=== PATIENT | female | born 1960 | race Caucasian/White ===

== ENCOUNTER → 2016-12-27 | Outpatient (CLI) | payer OTHER | LOC: KOH-I 16:37 | DX: R05 Cough (principal) | CPT/HCPCS: 71020 ==

== ENCOUNTER 2021-07-10 20:48 | Inpatient (IN) | payer MEDICARE, OTHER, MEDICAID ==
[~2021-07-10] VITALS: Ht 162.6 cm; Wt 40.1 kg
[2021-07-10 23:08] LABS: HEMOGLOBIN 15.2 gm/dl (12.3-15.3); RED BLOOD COUNT 4.7 M/UL (4.00-5.10); WHITE BLOOD COUNT 9.8 K/UL (4.5-11.0)
[2021-07-10 23:32] LABS: BUN/CREATININE RATIO 11 (0-10)
[2021-07-11] MEDS ORDERED: TYLENOL EXTRA500 MG PO (09:44)
[2021-07-11] MEDS ORDERED: BUPRENORPHIN-N1 EACH SL (09:44)
[2021-07-12 06:55] LABS: HEMOGLOBIN 12.4 gm/dl (12.3-15.3); RED BLOOD COUNT 3.91 M/UL (4.00-5.10); WHITE BLOOD COUNT 14.8 K/UL (4.5-11.0)
[2021-07-12 07:27] LABS: BUN/CREATININE RATIO 26 (0-10)
[2021-07-13 06:06] LABS: HEMOGLOBIN 11.9 gm/dl (12.3-15.3); RED BLOOD COUNT 3.77 M/UL (4.00-5.10); WHITE BLOOD COUNT 13.9 K/UL (4.5-11.0)
[2021-07-13 06:30] LABS: BUN/CREATININE RATIO 30 (0-10)
[2021-07-13] MEDS ORDERED: MEDROL DOSEPAK 24 MG PO (14:56)
[2021-07-13] MEDS ORDERED: LEVOFLOXACIN500 MG PO (14:56)
[2021-07-13] MEDS ORDERED: IPRATROPIU0.2 MG/1 M NEB (14:56)
[2021-07-13] MEDS ORDERED: PULMICORT FLE180 MCG INH (14:56)
[2021-07-13] MEDS ORDERED: LASIX20 MG PO (14:56)
[2021-07-13] MEDS ORDERED: IPRAT-ALBUT 0.5-3 ML INH (14:56)
[2021-07-16 18:10] LABS: HISTOPLASMA MYCELIAL ID AB. Negative (Negative)
== END 2021-07-13 17:20 | disposition home or self-care (01) | DRG 189 ==
LOC: ER1 20:48 → CDU 07-11 02:12 → M/S 07-12 00:40
PROVIDERS: Internal Medicine; Internal Medicine Pulmonary Disease; Physician Assistant; ADMIT Internal Medicine
PROC: 0BD48ZX Extraction of Right Upper Lobe Bronchus, Via Natural or Artificial Opening Endoscopic, Diagnostic (ICD-10-PCS; 2021-07-13)
PROC: 0B9C8ZX Drainage of Right Upper Lung Lobe, Via Natural or Artificial Opening Endoscopic, Diagnostic (ICD-10-PCS; principal; 2021-07-13 11:00)
DX: J96.21 Acute and chronic respiratory failure with hypoxia (principal); E43 Unspecified severe protein-calorie malnutrition; J44.1 Chronic obstructive pulmonary disease with (acute) exacerbation; E87.1 Hypo-osmolality and hyponatremia; F11.20 Opioid dependence, uncomplicated; Z68.1 Body mass index [BMI] 19.9 or less, adult; R91.8 Other nonspecific abnormal finding of lung field; J96.22 Acute and chronic respiratory failure with hypercapnia; F17.210 Nicotine dependence, cigarettes, uncomplicated; E88.09 Other disorders of plasma-protein metabolism, not elsewhere classified; Z20.822 Contact with and (suspected) exposure to COVID-19; Z80.1 Family history of malignant neoplasm of trachea, bronchus and lung; Z82.49 Family history of ischemic heart disease and other diseases of the circulatory system; Z85.41 Personal history of malignant neoplasm of cervix uteri; Z79.899 Other long term (current) drug therapy
CPT/HCPCS: ECHO; 36415; 36600; 71045; 80048; 80053; 81001; 82550; 82553; 82803; 83605; 83615; 83874; 83880; 84484; 85025; 85027; 86612; 86698; 87015; 87040; 87070; 87086; 87116; 87205; 87206; 93005; 93306; 94640; 94664; 94760; 96374; 99285; J0456; J0696; J1650; J2001; J2704; J2920; J2930; J7030; Q9967; U0002

== ENCOUNTER 2021-08-13 16:26 | Emergency (ER) | payer MEDICARE, OTHER ==
[~2021-08-13 16:26] MED LIST: BUPRENORPHIN-N1 EACH SL; IPRAT-ALBUT 0.5-3 ML INH; IPRATROPIU0.2 MG/1 M NEB; LASIX20 MG PO; LEVOFLOXACIN500 MG PO; MEDROL DOSEPAK 24 MG PO; PULMICORT FLE180 MCG INH; TYLENOL EXTRA500 MG PO
[2021-08-13 17:50] LABS: HEMOGLOBIN 13.2 gm/dl (12.3-15.3); RED BLOOD COUNT 4.2 M/UL (4.00-5.10); WHITE BLOOD COUNT 6.6 K/UL (4.5-11.0)
[2021-08-13 18:14] LABS: BUN/CREATININE RATIO 15 (0-10)
[2021-08-14] MEDS ORDERED: PULMICORT FLE180 MCG INH (02:37)
[2021-08-14] MEDS ORDERED: LASIX20 MG PO (02:37)
[2021-08-14] MEDS ORDERED: PREDNISONE20 MG PO (02:37)
[2021-08-14] MEDS ORDERED: IPRAT-ALBUT 0.5-3 ML INH (02:37)
== END 2021-08-14 04:25 | disposition home or self-care (01) ==
LOC: ER1 16:26
PROVIDERS: Physician Assistant Medical
DX: J44.1 Chronic obstructive pulmonary disease with (acute) exacerbation (principal); Z20.822 Contact with and (suspected) exposure to COVID-19
CPT/HCPCS: 36600; 71045; 80053; 82550; 82553; 82803; 83874; 84484; 85025; 93005; 94640; 94664; 96374; 99285; J2930; U0002

== ENCOUNTER → 2021-09-20 | Outpatient (CLI) | payer MEDICARE, OTHER ==
[~2021-09-20] MED LIST changes: +PREDNISONE20 MG PO
== END ==
LOC: KOH-I 09:00
DX: R91.1 Solitary pulmonary nodule (principal); J84.10 Pulmonary fibrosis, unspecified
CPT/HCPCS: 71250

== ENCOUNTER → 2021-12-29 | Outpatient (CLI) | payer MEDICARE, OTHER | LOC: KOH-I 13:00 | DX: R91.1 Solitary pulmonary nodule (principal) | CPT/HCPCS: 71250 ==